=== PATIENT | female | born 2000 | race Caucasian/White ===

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

== ENCOUNTER 2022-01-22 06:18 | Inpatient (IN) ==
[2022-01-22 08:33] LABS: Urine Appearance Clear; Urine Color Yellow
[2022-01-22 08:34] LABS: Urine Bilirubin Negative (Negative); Urine Blood Negative (Negative); Urine Glucose Negative (Negative); Urine Ketones Negative (Negative); Urine Nitrite Negative (Negative); Urine Protein Negative (Negative); Urine Specific Gravity 1.015 (1.005-1.030); Urine Urobilinogen 0.2 (Negative) (Negative)
[2022-01-22 08:55] LABS: Urine Bacteria 3+ (Absent); Urine Red Blood Cell Trace(0-2/hpf) (Absent); Urine Squamous Epithelial Cell Present (Absent); Urine White Blood Cell 1+(6-10/hpf) (Absent)
[2022-01-22] MEDS ORDERED: Al Hydrox/Mg Hydrox/Simet LIQ 30 ML UDC PO PRN (11:18)
[2022-01-22] MEDS ORDERED: EPINEPHrine Anaphylaxis SYR CERTADOSE SYR KIT IM PRN (14:11)
[2022-01-23] MEDS: Cholecalciferol (VIT D3) 1,000 unit TAB PO SCH (07:54)
[2022-01-24] MEDS: Cholecalciferol (VIT D3) 1,000 unit TAB PO SCH (07:48)
[2022-01-25] MEDS: Cholecalciferol (VIT D3) 1,000 unit TAB PO SCH (08:39)
[2022-01-26] MEDS: Cholecalciferol (VIT D3) 1,000 unit TAB PO SCH (08:59)
[2022-01-27] MEDS: Cholecalciferol (VIT D3) 1,000 unit TAB PO SCH (09:03)
[2022-01-28] MEDS: Cholecalciferol (VIT D3) 1,000 unit TAB PO SCH (10:50)
[2022-01-29 07:41] VITALS: BP 148/88
[2022-01-29] MEDS: Cholecalciferol (VIT D3) 1,000 unit TAB PO SCH (08:12)
== END 2022-01-29 16:57 | disposition home or self-care (01) | DRG 757 ==
LOC: ED 06:18 → EDHOLD 11:18 → BSU 14:02
PROVIDERS: ADMIT Psychiatry & Neurology Psychiatry; ATTEND Psychiatry & Neurology Psychiatry

== ENCOUNTER 2022-04-20 19:10 | Inpatient (IN) ==
[2022-04-20 20:52] LABS: Urine Benzodiazepine Screen None Detected (None Detect); Urine Cannabinoids Screen None Detected (None Detect); Urine Opiates Screen None Detected (None Detect)
[2022-04-20 20:58] LABS: Urine Appearance Cloudy; Urine Bilirubin Negative (Negative); Urine Blood Negative (Negative); Urine Color Straw; Urine Glucose Negative (Negative); Urine Ketones Negative (Negative); Urine Nitrite Negative (Negative); Urine Protein Negative (Negative); Urine Specific Gravity 1.004 (1.002-1.030); Urine Urobilinogen Negative (Negative)
[2022-04-21 10:23] LABS: ABS Basophils 0.1 10^3/ul (0-0.2); ABS Eosinophils 0.1 10^3/ul (0-0.6); ABS Lymphocytes 3.2 10^3/ul (1.0-4.8); ABS Monocytes 0.7 10^3/ul (0-0.8); Eosinophil % 1.1 %; Hematocrit 43 % (35-47); Hemoglobin 14.1 g/dL (12.0-16.0); Lymphocyte % 26.4 %; Mean Corpuscular HGB Conc 33 g/dL (31-36); Mean Corpuscular Hemoglobin 30 pg (27-31); Mean Corpuscular Volume 91 fL (80-97); Mean Platelet Volume 9.3 fL (7.4-10.4); Platelet Count 252 10^3/uL (150-450); Red Blood Count 4.69 10^6 /uL (3.70-4.87); Red Cell Distribution Width 12 % (10-15); White Blood Count 12.1 10^3/uL (3.5-10.8)
[2022-04-21 11:34] LABS: ALT 22 U/L (7-52); AST 15 U/L (13-39); Acetaminophen < 15 mcg/mL; Albumin 4.2 g/dL (3.2-5.2); Albumin/Globulin Ratio 1.4 (1-3); Alcohol, S < 13 mg/dL (<13); Alkaline Phosphatase 72 U/L (35-149); Anion Gap 12 mmol/L (2-11); Blood Urea Nitrogen 8 mg/dL (6-24); CO2 Carbon Dioxide 26 mmol/L (22-32); Calcium 9.4 mg/dL (8.6-10.3); Chloride 103 mmol/L (101-111); Glucose 126 mg/dL (70-100); Potassium 3.8 mmol/L (3.5-5.0); Salicylate < 2.50 mg/dL (<30); Sodium 141 mmol/L (135-145); Total Protein 7.2 g/dL (6.4-8.9); eGFR CKD-EPI 101.1 (>60)
[2022-04-21 11:38] LABS: HCG Pregnancy < 0.60 mIU/mL
[2022-04-21 11:47] LABS: TSH Ultra Thyroid Stim Horm 2.85 mcIU/mL (0.34-5.60)
[2022-04-21] MEDS ORDERED: Al Hydrox/Mg Hydrox/Simet LIQ 30 ML UDC PO PRN (13:32)
[2022-04-21] MEDS ORDERED: EPINEPHrine Anaphylaxis SYR CERTADOSE SYR KIT IM PRN ×2 (13:34→14:00)
[2022-04-22] MEDS: Cholecalciferol (VIT D3) 1,000 unit TAB PO SCH (09:13)
[2022-04-22] MEDS: Vitamin THERAPEUTIC TAB PO SCH (09:16)
[2022-04-23] MEDS: Vitamin THERAPEUTIC TAB PO SCH (08:25)
[2022-04-23] MEDS: Cholecalciferol (VIT D3) 1,000 unit TAB PO SCH (08:27)
[2022-04-24] MEDS: Cholecalciferol (VIT D3) 1,000 unit TAB PO SCH (09:55)
[2022-04-24] MEDS: Vitamin THERAPEUTIC TAB PO SCH (09:58)
[2022-04-25] MEDS: Cholecalciferol (VIT D3) 1,000 unit TAB PO SCH (08:26)
[2022-04-25] MEDS: Vitamin THERAPEUTIC TAB PO SCH (08:27)
[2022-04-26 08:09] VITALS: BP 132/89
[2022-04-26] MEDS: Cholecalciferol (VIT D3) 1,000 unit TAB PO SCH (10:19)
[2022-04-26] MEDS: Vitamin THERAPEUTIC TAB PO SCH (10:20)
== END 2022-04-26 16:45 | disposition home or self-care (01) | DRG 755 ==
LOC: ED 19:10 → EDHOLD 04-21 11:16 → BSU 04-21 12:28
PROVIDERS: ADMIT Psychiatry & Neurology Psychiatry; ATTEND Psychiatry & Neurology Psychiatry